=== PATIENT | female | born 1950 | race Caucasian/White ===

== ENCOUNTER 2016-10-25 10:14 | Inpatient (IN) ==
[2016-10-25] MEDS ORDERED: methylPREDNISolone 125 MG/2 ML VIAL IVP ONE (10:16)
--- NOTE | 2016-10-25 10:21 | Emergency Department Note ---
Disposition Clinical Impression: Acute exacerbation of chronic obstructive airways disease, Community acquired pneumonia Disposition: Admitted As Inpatient Condition: Fair Referrals: Lena Hawthorne CNP [Primary Care Provider] - Forms: ED Satisfaction Letter Time of Disposition: 13:45 SOB HPI - General Chief Complaint: ED Shortness of Breath/Dyspnea Stated Complaint: generalized weakness/shortness of breath Time Seen by Provider: 10/25/16 10:15 Source: patient, EMS Mode of arrival: EMS Limitations: no limitations Nursing Notes Reviewed: Yes Vital Signs Reviewed: Yes - History of Present Illness 0-8-ynfl-old with history COPD he's had increasing shortness of breath for the last 2 weeks. Patient also has a history of PE and is on Xarelto. A squad on transport noted the patient's pulse ox was in the low 70s when they arrived she is on 3 L at home. She was given breathing treatment with a nonrebreather and she went up to 97%. The breathing treatment the patient's pulse ox dropped down into the mid 80s on 3 L nasal cannula. She does not appear to be confused at this time. Pt Subjective Complaint: shortness of breath Onset (ago): day(s) (Several) Severity: moderate Consistency/Duration: constant Improves with: nothing Worsens with: exertion Known history of: COPD Associated symptoms: Reports: cough, wheezing. Denies: chest pain, fever Treatment prior to arrival: oxygen, bronchodilator Cough present: Yes Cough Description: Involuntary Cough Frequency: Intermittent - Related Data Home Medications Medication Instructions Recorded Confirmed Furosemide [Lasix] 20 mg PO DAILY PRN 03/22/16 03/22/16 Oxycodone HCl/Acetaminophen 1 each PO Q6H PRN 03/22/16 03/22/16 [Percocet 5-325 mg Tablet] Potassium Chloride 20 meq PO DAILY PRN 03/22/16 03/22/16 Previous Rx's Medication Instructions Recorded Rivaroxaban [Xarelto] 20 mg PO DAILY #30 tablet 11/09/15 Allergies Allergy/AdvReac Type Severity Reaction Status Date / Time No Known Allergies Allergy Verified 10/24/15 13:14 All systems ED: reviewed and negative except as stated. Constitutional: Denies: fever, chills, weakness, weight change Eyes: Denies: eye pain, eye discharge, vision change ENT ED: Denies: ear pain, throat pain, dental pain, hearing loss, epistaxis, congestion, dysphagia Cardiovascular: Denies: chest pain, palpitations, dyspnea on exertion, edema, syncope Respiratory: Reports: cough, dyspnea, wheezes. Denies: hemoptysis, stridor Gastrointestinal: Denies: abdominal pain, nausea, vomiting, diarrhea, constipation, hematemesis, melena, hematochezia Genitourinary: Denies: dysuria, frequency, hematuria, discharge Musculoskeletal: Denies: back pain, neck pain, arthralgia, myalgia Integumentary: Denies: rash, abrasion, lesions Neurological: Denies: headache, weakness, numbness, paresthesias, confusion, abnormal gait, vertigo Psychiatric: Denies: anxiety, depression, suicidal thoughts, homicidal thoughts , auditory hallucinations, visual hallucinations Endocrine: Denies: fatigue Hematological/Lymphatic: Denies: easy bleeding, easy bruising Allergic/Immunologic: Denies: facial swelling, urticaria Past Medical History - Past Medical History Medical history: Reports: COPD, pulmonary embolus Surgical history: Reports: appendectomy, cholecystectomy Psychiatric history: Reports: no psych history - Social History Smoking Status: Current every day smoker Smokeless Tobacco Status: No Alcohol use: Reports: none Drug use: Reports: none Physical Exam - General Limitations: no limitations General appearance: alert, in no apparent distress - Head Head exam: atraumatic, normocephalic, normal inspection - Eye Eye exam: Present: normal appearance, PERRL, EOMI - ENT ENT exam: normal exam - Neck Neck exam: Present: normal inspection - Chest Chest inspection: Present: normal inspection - Respiratory Respiratory exam: Present: respiratory distress, wheezes - Cardiovascular Cardiovascular exam: Present: regular rate, normal rhythm, normal heart sounds - Abdominal Exam Abdominal exam: Present: soft, Non-Tender. Absent: tenderness, distention, guarding, rebound, rigidity - Extremities Exam Extremities exam: Present: normal inspection, full ROM. Absent: tenderness, pedal edema - Expanded Lower Extremity Exam Neurovascular/Tendon exam: Absent: motor deficit, sensory deficit, tendon deficit Gait: observed and normal - Back Exam Back exam: Present: normal inspection, full ROM. Absent: tenderness - Neurological Exam Neurological exam: Present: alert, oriented X3 - Psychiatric Psychiatric exam: Present: normal affect, normal mood - Skin Skin exam: Present: warm, dry, intact, normal color Course - Reevaluation(s) Reevaluation #1: 66-year-old with history of COPD comes in with increasing shortness of breath. Workup included a CT scan that she's had previous pulmonary emboli and is on anticoagulation. CT scan does show pneumonia. She is requiring increasing amounts of oxygen and maintain her sats. Blood gas shows a normal pH. Time: 13:46 - Consultations Consultation #1: Discussed with , admit. Time: 13:46 Vital Signs Temperature 98.0 F 10/25/16 10:21 Pulse Rate 91 10/25/16 10:21 Respiratory Rate 18 10/25/16 10:21 Blood Pressure 126/72 10/25/16 10:21 O2 Sat by Pulse Oximetry 91 10/25/16 10:21 Temperature 98.0 F 10/25/16 10:21 Pulse Rate 68 10/25/16 13:09 Respiratory Rate 18 10/25/16 13:09 Blood Pressure 145/99 10/25/16 13:09 O2 Sat by Pulse Oximetry 91 10/25/16 13:09 Oxygen Delivery Oxygen Delivery Nasal Cannula Shortness of Breath/Dyspnea - Lab Data Lab results reviewed: Yes I reviewed the patient's lab results. Result diagrams: 10/25/16 10:52 10/25/16 10:52 Lab Results 10/25/16 10/25/16 10/25/16 Range/Units 10:25 10:52 10:52 WBC 15.8 H (4.3-11.1) K/mcL RBC 5.02 H (3.82-4.97) M/mcL Hgb 15.2 (11.5-15.4) g/dL Hct 47.5 H (35.3-44.9) % MCV 94.6 (83.0-100.0) fL MCH 30.3 (28.0-33.3) pg MCHC 32.0 (31.6-35.5) g/dL RDW 17.2 H (11.5-14.5) % Plt Count 270 (140-400) K/mcL MPV 10.1 (9.4-12.4) fL Immature Gran % 0.6 (0-4) % Seg Neutrophils % 83.0 % Lymphocytes % 10.2 % Monocytes % 5.8 % Eosinophils % 0.3 % Basophils % 0.1 % Neutrophils # 13.1 H (1.6-8.9) K/mcL Lymphocytes # 1.6 (0.6-4.6) K/mcL Monocytes # 0.9 (0.0-1.3) K/mcL Eosinophils # 0.1 (0.0-0.6) K/mcL Basophils # 0.0 (0.0-0.2) K/mcL PT (9.4-12.1) Seconds INR APTT (26.0-36.0) Seconds D-Dimer (0-500) ng/mLFEU ABG pH 7.41 (7.32-7.45) pH Units ABG pCO2 62 H (35-45) mmHg ABG pO2 56 L (85-104) mmHg ABG HCO3 39.3 H (21-27) mEQ/L ABG Total CO2 41.2 H (20-26) mEq/L ABG O2 Saturation 89 L (95-98) % ABG Base Excess 11.6 H (-2.0 to 3.0) mEq/L Blood Gas Modality N/C Inspired O2 36 % Sodium 141 (136-145) mEq/L Potassium 3.1 L (3.5-4.5) mEq/L Chloride 97 L (98-109) mEq/L Carbon Dioxide 36 H (19-29) mEq/L BUN 11 (7-20) mg/dL Creatinine 0.65 (0.57-1.11) mg/dL Est GFR ( Amer) > 60 (> 60) Est GFR (Non-Af Amer) > 60 (> 60) BUN/Creatinine Ratio 17 (6-26) Glucose 120 H (70-99) mg/dL Calculated Osmolality 293 (280-300) Lactic Acid (0.5-2.2) mmol/L Calcium 9.2 (8.6-10.8) mg/dL Troponin I (0-0.03) ng/mL B-Natriuretic Peptide (0-100) pg/mL 10/25/16 10/25/16 10/25/16 Range/Units 10:52 10:52 10:52 WBC (4.3-11.1) K/mcL RBC (3.82-4.97) M/mcL Hgb (11.5-15.4) g/dL Hct (35.3-44.9) % MCV (83.0-100.0) fL MCH (28.0-33.3) pg MCHC (31.6-35.5) g/dL RDW (11.5-14.5) % Plt Count (140-400) K/mcL MPV (9.4-12.4) fL Immature Gran % (0-4) % Seg Neutrophils % % Lymphocytes % % Monocytes % % Eosinophils % % Basophils % % Neutrophils # (1.6-8.9) K/mcL Lymphocytes # (0.6-4.6) K/mcL Monocytes # (0.0-1.3) K/mcL Eosinophils # (0.0-0.6) K/mcL Basophils # (0.0-0.2) K/mcL PT (9.4-12.1) Seconds INR APTT (26.0-36.0) Seconds D-Dimer (0-500) ng/mLFEU ABG pH (7.32-7.45) pH Units ABG pCO2 (35-45) mmHg ABG pO2 (85-104) mmHg ABG HCO3 (21-27) mEQ/L ABG Total CO2 (20-26) mEq/L ABG O2 Saturation (95-98) % ABG Base Excess (-2.0 to 3.0) mEq/L Blood Gas Modality Inspired O2 % Sodium (136-145) mEq/L Potassium (3.5-4.5) mEq/L Chloride (98-109) mEq/L Carbon Dioxide (19-29) mEq/L BUN (7-20) mg/dL Creatinine (0.57-1.11) mg/dL Est GFR ( Amer) (> 60) Est GFR (Non-Af Amer) (> 60) BUN/Creatinine Ratio (6-26) Glucose (70-99) mg/dL Calculated Osmolality (280-300) Lactic Acid 0.9 (0.5-2.2) mmol/L Calcium (8.6-10.8) mg/dL Troponin I 0.01 (0-0.03) ng/mL B-Natriuretic Peptide 35 (0-100) pg/mL 10/25/16 Range/Units 10:52 WBC (4.3-11.1) K/mcL RBC (3.82-4.97) M/mcL Hgb (11.5-15.4) g/dL Hct (35.3-44.9) % MCV (83.0-100.0) fL MCH (28.0-33.3) pg MCHC (31.6-35.5) g/dL RDW (11.5-14.5) % Plt Count (140-400) K/mcL MPV (9.4-12.4) fL Immature Gran % (0-4) % Seg Neutrophils % % Lymphocytes % % Monocytes % % Eosinophils % % Basophils % % Neutrophils # (1.6-8.9) K/mcL Lymphocytes # (0.6-4.6) K/mcL Monocytes # (0.0-1.3) K/mcL Eosinophils # (0.0-0.6) K/mcL Basophils # (0.0-0.2) K/mcL PT 13.8 H (9.4-12.1) Seconds INR 1.3 APTT 25.9 L (26.0-36.0) Seconds D-Dimer 6326 H (0-500) ng/mLFEU ABG pH (7.32-7.45) pH Units ABG pCO2 (35-45) mmHg ABG pO2 (85-104) mmHg ABG HCO3 (21-27) mEQ/L ABG Total CO2 (20-26) mEq/L ABG O2 Saturation (95-98) % ABG Base Excess (-2.0 to 3.0) mEq/L Blood Gas Modality Inspired O2 % Sodium (136-145) mEq/L Potassium (3.5-4.5) mEq/L Chloride (98-109) mEq/L Carbon Dioxide (19-29) mEq/L BUN (7-20) mg/dL Creatinine (0.57-1.11) mg/dL Est GFR ( Amer) (> 60) Est GFR (Non-Af Amer) (> 60) BUN/Creatinine Ratio (6-26) Glucose (70-99) mg/dL Calculated Osmolality (280-300) Lactic Acid (0.5-2.2) mmol/L Calcium (8.6-10.8) mg/dL Troponin I (0-0.03) ng/mL B-Natriuretic Peptide (0-100) pg/mL - Radiology Data Radiology results reviewed: Yes I reviewed the patient's radiology results. Chest X-Ray 10/25/16 10:16 IMPRESSION: Stable appearance of the chest. No evidence of acute cardiopulmonary disease. D/ / Ziggy Weiss MD / Ziggy Weiss MD Interpreting Provider: Ziggy Weiss MD Chest CTA 10/25/16 12:13 IMPRESSION: 1. No acute pulmonary embolus. 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 2. Bilateral multifocal tree-in-bud opacities suggestive of infectious bronchiolitis. There is more focal opacity in the right upper lobe suggestive of pneumonia. 3. 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 This is stable in appearance since the prior exam. D/ / 10/25/2016 13:17:13 Alis Crum MD / Rosy Brody Interpreting Provider: Alis Crum MD - EKG Data EKG attestation: Yes I reviewed and interpreted this EKG. EKG shows normal: Reports: sinus rhythm Rate: Reports: normal Rhythm: Reports: NSR Interpretation: Reports: no acute changes
[2016-10-25] MEDS: Ipratropium/Albuterol Neb 3 ML IH ONE ×2 (10:28→11:02)
[2016-10-25 10:32] LABS: ABG Base Excess 11.6 mEq/L (-2.0 to 3.0); ABG HCO3 39.3 mEQ/L (21-27); ABG Oxygen Saturation 89 % (95-98); ABG PCO2 62 mmHg (35-45); ABG PH 7.41 pH Units (7.32-7.45); ABG PO2 56 mmHg (85-104); ABG TCO2 41.2 mEq/L (20-26)
[2016-10-25 10:33] LABS: Blood Gas FiO2 36 %
[2016-10-25 11:00] LABS: Basophils % 0.1 %; Eosinophils # 0.1 K/mcL (0.0-0.6); Eosinophils % 0.3 %; Hematocrit 47.5 % (35.3-44.9); Hemoglobin 15.2 g/dL (11.5-15.4); Immature Granulocytes % 0.6 % (0-4); Lymphocytes # 1.6 K/mcL (0.6-4.6); Lymphocytes % 10.2 %; Mean Corpuscular Hemoglobin 30.3 pg (28.0-33.3); Mean Corpuscular Volume 94.6 fL (83.0-100.0); Mean Platelet Volume 10.1 fL (9.4-12.4); Monocytes # 0.9 K/mcL (0.0-1.3); Monocytes % 5.8 %; Neutrophils # 13.1 K/mcL (1.6-8.9); Platelet Count 270 K/mcL (140-400); Red Blood Count 5.02 M/mcL (3.82-4.97); Red Cell Distribution Width 17.2 % (11.5-14.5)
[2016-10-25 11:05] LABS: INR 1.3; Prothrombin Time 13.8 Seconds (9.4-12.1)
[2016-10-25 11:08] LABS: Activated Partial Thrombo Time 25.9 Seconds (26.0-36.0)
[2016-10-25 11:12] LABS: BUN/Creatinine Ratio 17 (6-26); Blood Urea Nitrogen 11 mg/dL (7-20); Calcium 9.2 mg/dL (8.6-10.8); Carbon Dioxide 36 mEq/L (19-29); Chloride 97 mEq/L (98-109); Glucose 120 mg/dL (70-99); Osmolality,Calculated 293 (280-300); Potassium 3.1 mEq/L (3.5-4.5); Sodium 141 mEq/L (136-145); eGFR For African Americans > 60 (> 60); eGFR For Non-African Americans > 60 (> 60)
[2016-10-25] MEDS ORDERED: Azithromycin 500 MG in D5% in Water 250 ML IVPB ONE (13:23)
[2016-10-25 13:55] LABS: Bilirubin,Urine Moderate (Negative); Blood,Urine Negative (Negative); Clarity,Urine Clear (Clear); Color,Urine Orange (Yellow); Glucose,Urine (UA) Normal (Normal); Ketones,Urine 15 mg/dL (Negative); Leukocyte Esterase,Urine Negative (Negative); Nitrite,Urine Positive (Negative); PH,Urine 6.5 pH Units (5.0-8.0); Protein,Urine 30 mg/dL (Neg-Trace); Specific Gravity,Urine > 1.030 (1.010-1.025)
[2016-10-25 14:01] LABS: Bacteria,Urine None Seen per hpf (None-Few); RBC,Urine 0-3 per hpf (0-3); Squamous Epithelial Cell,Urine Many per lpf (None-Few)
[2016-10-25] MEDS ORDERED: Acetaminophen 325 MG TABLET PO PRN (14:17)
[2016-10-25] MEDS ORDERED: Naloxone 0.4 MG/ML INJ IVP PRN (14:17)
[2016-10-25] MEDS ORDERED: Albuterol 2.5 MG/3 ML NEBULIZER IH PRN (14:23)
[2016-10-25] MEDS ORDERED: Ipratropium/Albuterol Neb 3 ML IH ONE (14:23)
--- NOTE | 2016-10-25 14:28 | Internal Med History&Physical ---
<Edwige Riley M - Last Filed: 10/25/16 14:53> Date of Encounter: 10/25/16 Time of Encounter: 14:25 Assessment and Plan (1) Community acquired pneumonia Current visit: Yes Status: Acute Patient with productive cough and increasing shortness of breath. CT Chest showed bilateral multifocal tree-in-bud opacities suggestive of infectious bronchiolitis and a more focal opacity in the right upper lobe suggestive of pneumonia. IV fluids 0.9NS at 80mL/hr Azithromycin and Ceftriaxone IVPB Mucinex BID Duoneb treatments QID Albuterol nebulizer Q2hr PRN titrate oxygen to maintain O2 saturation > 90% Incentive spirometry continuous pulse oximetry (2) Acute and chronic respiratory failure Current visit: Yes Status: Acute Patient with COPD requiring 2.5L of O2 at home. SHe reports increasing shortness of breath and her O2 sat was seen to be in the 70s by squad and she has increased oxygen requirements to maintain O2 sat > 90%. ABG showed hypercapnea with PCO2 of 62. Titrate O2 to maintain O2 sat > 90% continuous pulse oximetry. duoneb treatments QID albuterol nebulizer Q2hr prn Qualifiers: Respiratory failure complication: hypoxia and hypercapnia Qualified Code(s) : J96.21 - Acute and chronic respiratory failure with hypoxia; J96.22 - Acute and chronic respiratory failure with hypercapnia (3) Sepsis Current visit: No Status: Acute Patient meets criteria for sepsis, with pneumonia, elevated WBC count of 15.8 and tachypnea with observed RR of 22. Blood cultures drawn and sent lactic acid normal at 0.9 Antibiotics initiated with Azithromycin and ceftriaxone Sputum culture ordered. Qualifiers: Sepsis type: sepsis due to unspecified organism Qualified Code(s): A41.9 - Sepsis, unspecified organism (4) COPD (chronic obstructive pulmonary disease) Current visit: No Status: Acute Titrate O2 to maintain Oxygen saturation > 90% Continue home dose of budesonide/formotorol Duoneb treatments QID albuterol nebulizer Q2 hr PRN Qualifiers: COPD type: unspecified COPD Qualified Code(s): J44.9 - Chronic obstructive pulmonary disease, unspecified (5) History of pulmonary embolus (PE) Current visit: No Status: Chronic Patient has mirtha filter placed and is maintained on Xarelto for anti- coagulation Continue home dose of Xarelto. (6) Hypokalemia Current visit: Yes Status: Acute potassium of 3.1 20mEq of potassium PO given by ED Additional 40mEq PO ordered for this evening Recheck chemistry in the morning. (7) UTI (urinary tract infection) Current visit: Yes Status: Acute UA consistent with UTI. Patient on Ceftriaxone for Pneumonia which should cover common causes of UTI. Await culture results. Qualifiers: Urinary tract infection type: acute cystitis Hematuria presence: without hematuria Qualified Code(s): N30.00 - Acute cystitis without hematuria (8) DVT prophylaxis Current visit: No Status: Chronic ambulate with assistance anti-embolic stockings Patient is on Xarelto, additional pharmacologic prophylaxis is not indicated. Internal Medicine - H&P: HPI Chief complaint: shortness of breath Admitted From: Emergency Dept Plans for Post Hospital Care: Home History of present illness: Ms. Childress is a 66 year old female with COPD, hypertension, hyperlipidemia, history of multiple DVTs and PE with [employer] filter placed and on xarelto, who presented to the emergency department today with complaints of shortness of breath. She reports that she has had increased shortness of breath over the last several weeks with increasing weakness and fatigue, poor appetite, and productive cough. She reports her cough is productive of yellow thick sputum. She also reports some nasal congestion, occasional nausea, occasional lightheadedness. She denies any headache, fever, chills, sweats, abdominal pain , diarrhea. She wears 2-1/2 L of oxygen as needed at home for her history of COPD, but has needed it more in the last several weeks due to her shortness of breath. Evaluation in the emergency department revealed elevated white blood cell count of 15.8. She was hypokalemic with potassium of 3.1. Lactate was normal at 0.9, troponin was negative at 0.01, BNP was normal at 35, d-dimer was elevated to 6326. Chest x-ray showed stable appearance of the chest, no evidence of acute cardiopulmonary disease. CT was performed which showed no acute pulmonary embolus, chronic linear thrombus versus web within the distal left lower lobe pulmonary artery. It also showed bilateral multifocal tree-in- bud opacities suggestive of infectious bronchiolitis as well as a more focal opacity in the right upper lobe suggestive of pneumonia. She was initiated on antibiotics with ceftriaxone and azithromycin, and given a DuoNeb treatment. On exam, patient was alert and oriented, in no acute distress. She was mildly tachypneic with respiratory rate 22. Lungs had diffuse rhonchi and rales on auscultation. Regular rate and rhythm. She had bilateral lower extremity chronic edema and thickened skin consistent with venous insufficiency, patient reports this is chronic and unchanged. Past Med Surg Social Fam HX - Past Medical History Medical history: COPD, DVT, hyperlipidemia, hypertension, pulmonary embolus Psychiatric history: no psych history - Past Surgical History Surgical History: appendectomy, cholecystectomy, vascular surgery (bypass of occluded subclavian), IVC filter - Social History Smoking Status: Current every day smoker Smokeless Tobacco Status: No Alcohol use: none Drug use: none - Family History Mother Living Status: Cause of : Lung Cancer Hx Family Cancer: Yes Father Living Status: Age at : 48 Cause of : [place] Hx Family Cardiac Disorders: Yes Internal Medicine - H&P: Meds Rivaroxaban [Xarelto] 20 mg PO DAILY #30 tablet 11/09/15 [Rx] Furosemide [Lasix] 20 mg PO DAILY PRN 03/22/16 [History] Potassium Chloride 20 meq PO DAILY PRN 03/22/16 [History] Albuterol Neb [Proventil Neb] 2.5 mg IH Q4HR PRN 10/25/16 [History] Albuterol Sulfate [Ventolin Hfa] 2 puff IH Q4H PRN 10/25/16 [History] Budesonide/Formoterol 160/4.5 [Symbicort 160/4.5] 2 puff IH BIDR 10/25/16 [ History] Guaifenesin [Mucinex] 600 mg PO BID 10/25/16 [History] Naproxen Sodium [Aleve] 220 mg PO BID PRN 10/25/16 [History] OxyCODONE/APAP 7.5/325 [Percocet 7.5/325 MG] 1 tab PO Q6HR PRN 10/25/16 [History ] Oxygen 1 each .ROUTE AD 10/25/16 [History] Allergies No Known Allergies Allergy (Verified 10/24/15 13:14) All Systems PM: A 10-system review of systems was performed and is negative for pertinent findings except as documented above in the HPI. - Constitutional Constitutional: anorexia, fatigue, weakness, no chills, no fever(s), no night sweats - EENT Eyes: no change in vision, no discharge, no pain, no photophobia Ears: no ear discharge, no ear pain, no tinnitus Nose, mouth and throat: nasal congestion, nasal discharge, no dysphagia, no neck pain, no sore throat - Cardiovascular Cardiovascular ROS IM: dyspnea, dyspnea on exertion, lightheadedness, no chest pain, no diaphoresis, no palpitations, no syncope - Respiratory Respiratory: cough, dyspnea, dyspnea on exertion, chest congestion, excessive phlegm production, change in phlegm color, no wheezing - Gastrointestinal Gastrointestinal: nausea, no abdominal pain, no diarrhea, no hematemesis, no hematochezia, no melena, no vomiting - Genitourinary Genitourinary: no change in urinary stream, no dysuria, no flank pain, no hematuria - Musculoskeletal Musculoskeletal ROS IM: no numbness, no tingling - Integumentary Integumentary IM: no rash, no unusual bruising - Neurological Neurological ROS: no confusion, no convulsions, no focal weakness, no numbness, no tingling, no tremor(s) - Hematologic/Lymphatic Hematologic/Lymphatic: no easy bruising - Constitutional Vitals: Temp Pulse Resp BP Pulse Ox 98.0 F 82 18 133/67 91 10/25/16 10:21 10/25/16 14:00 10/25/16 14:00 10/25/16 14:00 10/25/16 14:00 General appearance: Present: A&O X 3, pleasant - Head Head exam: Present: atraumatic, normocephalic - Eye Eye exam: Present: PERRL, conjuntiva pink, sclera anicteric Pupils: Present: PERRL - Neck Neck exam general surgery: Present: supple, trachea midline. Absent: lymphadenopathy - Respiratory Respiratory exam: Present: rales, rhonchi. Absent: accessory muscle use, wheezes - Cardiovascular Cardiovascular exam: Present: RRR, +S1, +S2. Absent: diastolic murmur, gallop, rubs, systolic murmur - GI/Abdominal GI/Abdominal exam: Present: normal bowel sounds, soft, no peritoneal signs. Absent: distended, tenderness - Extremities Exam Extremities exam: Present: pedal edema (BLE edema), warm, radial pulses palpable and symetrical. Absent: calf tenderness, cyanotic - Neurological Exam Neurological exam: Present: CN II-XII intact, oriented X3, no focal deficits. Absent: facial droop, speech deficit - Skin Skin exam: Present: dry, intact Internal Med - H&P Results - Labs CBC & Chem 7: 10/25/16 10:52 10/25/16 10:52 Labs: All Lab Results (24 Hours) 10/25/16 10/25/16 10/25/16 Range/Units 10:25 10:52 10:52 WBC 15.8 H (4.3-11.1) K/mcL RBC 5.02 H (3.82-4.97) M/mcL Hgb 15.2 (11.5-15.4) g/dL Hct 47.5 H (35.3-44.9) % MCV 94.6 (83.0-100.0) fL MCH 30.3 (28.0-33.3) pg MCHC 32.0 (31.6-35.5) g/dL RDW 17.2 H (11.5-14.5) % Plt Count 270 (140-400) K/mcL MPV 10.1 (9.4-12.4) fL Immature Gran % 0.6 (0-4) % Seg Neutrophils % 83.0 % Lymphocytes % 10.2 % Monocytes % 5.8 % Eosinophils % 0.3 % Basophils % 0.1 % Neutrophils # 13.1 H (1.6-8.9) K/mcL Lymphocytes # 1.6 (0.6-4.6) K/mcL Monocytes # 0.9 (0.0-1.3) K/mcL Eosinophils # 0.1 (0.0-0.6) K/mcL Basophils # 0.0 (0.0-0.2) K/mcL PT (9.4-12.1) Seconds INR APTT (26.0-36.0) Seconds D-Dimer (0-500) ng/mLFEU ABG pH 7.41 (7.32-7.45) pH Units ABG pCO2 62 H (35-45) mmHg ABG pO2 56 L (85-104) mmHg ABG HCO3 39.3 H (21-27) mEQ/L ABG Total CO2 41.2 H (20-26) mEq/L ABG O2 Saturation 89 L (95-98) % ABG Base Excess 11.6 H (-2.0 to 3.0) mEq/L Blood Gas Modality N/C Inspired O2 36 % Sodium 141 (136-145) mEq/L Potassium 3.1 L (3.5-4.5) mEq/L Chloride 97 L (98-109) mEq/L Carbon Dioxide 36 H (19-29) mEq/L BUN 11 (7-20) mg/dL Creatinine 0.65 (0.57-1.11) mg/dL Est GFR ( Amer) > 60 (> 60) Est GFR (Non-Af Amer) > 60 (> 60) BUN/Creatinine Ratio 17 (6-26) Glucose 120 H (70-99) mg/dL Calculated Osmolality 293 (280-300) Lactic Acid (0.5-2.2) mmol/L Calcium 9.2 (8.6-10.8) mg/dL Troponin I (0-0.03) ng/mL B-Natriuretic Peptide (0-100) pg/mL Urine Color (Yellow) Urine Clarity (Clear) Urine pH (5.0-8.0) pH Units Ur Specific [place] (1.010-1.025) Urine Protein (Neg-Trace) mg/dL Urine Glucose (UA) (Normal) mg/dL Urine Ketones (Negative) mg/dL Urine Blood (Negative) Urine Nitrite (Negative) Urine Bilirubin (Negative) Urine Urobilinogen (Normal) mg/dL Ur Leukocyte Esterase (Negative) Urine Microscopic RBC (0-3) per hpf Urine Microscopic WBC (0-3) per hpf Ur Squamous Epith Cells (None-Few) per lpf Urine Bacteria (None-Few) per hpf Ur Culture Indicated? (NO) 10/25/16 10/25/16 10/25/16 Range/Units 10:52 10:52 10:52 WBC (4.3-11.1) K/mcL RBC (3.82-4.97) M/mcL Hgb (11.5-15.4) g/dL Hct (35.3-44.9) % MCV (83.0-100.0) fL MCH (28.0-33.3) pg MCHC (31.6-35.5) g/dL RDW (11.5-14.5) % Plt Count (140-400) K/mcL MPV (9.4-12.4) fL Immature Gran % (0-4) % Seg Neutrophils % % Lymphocytes % % Monocytes % % Eosinophils % % Basophils % % Neutrophils # (1.6-8.9) K/mcL Lymphocytes # (0.6-4.6) K/mcL Monocytes # (0.0-1.3) K/mcL Eosinophils # (0.0-0.6) K/mcL Basophils # (0.0-0.2) K/mcL PT (9.4-12.1) Seconds INR APTT (26.0-36.0) Seconds D-Dimer (0-500) ng/mLFEU ABG pH (7.32-7.45) pH Units ABG pCO2 (35-45) mmHg ABG pO2 (85-104) mmHg ABG HCO3 (21-27) mEQ/L ABG Total CO2 (20-26) mEq/L ABG O2 Saturation (95-98) % ABG Base Excess (-2.0 to 3.0) mEq/L Blood Gas Modality Inspired O2 % Sodium (136-145) mEq/L Potassium (3.5-4.5) mEq/L Chloride (98-109) mEq/L Carbon Dioxide (19-29) mEq/L BUN (7-20) mg/dL Creatinine (0.57-1.11) mg/dL Est GFR ( Amer) (> 60) Est GFR (Non-Af Amer) (> 60) BUN/Creatinine Ratio (6-26) Glucose (70-99) mg/dL Calculated Osmolality (280-300) Lactic Acid 0.9 (0.5-2.2) mmol/L Calcium (8.6-10.8) mg/dL Troponin I 0.01 (0-0.03) ng/mL B-Natriuretic Peptide 35 (0-100) pg/mL Urine Color (Yellow) Urine Clarity (Clear) Urine pH (5.0-8.0) pH Units Ur Specific [place] (1.010-1.025) Urine Protein (Neg-Trace) mg/dL Urine Glucose (UA) (Normal) mg/dL Urine Ketones (Negative) mg/dL Urine Blood (Negative) Urine Nitrite (Negative) Urine Bilirubin (Negative) Urine Urobilinogen (Normal) mg/dL Ur Leukocyte Esterase (Negative) Urine Microscopic RBC (0-3) per hpf Urine Microscopic WBC (0-3) per hpf Ur Squamous Epith Cells (None-Few) per lpf Urine Bacteria (None-Few) per hpf Ur Culture Indicated? (NO) 10/25/16 10/25/16 Range/Units 10:52 12:48 WBC (4.3-11.1) K/mcL RBC (3.82-4.97) M/mcL Hgb (11.5-15.4) g/dL Hct (35.3-44.9) % MCV (83.0-100.0) fL MCH (28.0-33.3) pg MCHC (31.6-35.5) g/dL RDW (11.5-14.5) % Plt Count (140-400) K/mcL MPV (9.4-12.4) fL Immature Gran % (0-4) % Seg Neutrophils % % Lymphocytes % % Monocytes % % Eosinophils % % Basophils % % Neutrophils # (1.6-8.9) K/mcL Lymphocytes # (0.6-4.6) K/mcL Monocytes # (0.0-1.3) K/mcL Eosinophils # (0.0-0.6) K/mcL Basophils # (0.0-0.2) K/mcL PT 13.8 H (9.4-12.1) Seconds INR 1.3 APTT 25.9 L (26.0-36.0) Seconds D-Dimer 6326 H (0-500) ng/mLFEU ABG pH (7.32-7.45) pH Units ABG pCO2 (35-45) mmHg ABG pO2 (85-104) mmHg ABG HCO3 (21-27) mEQ/L ABG Total CO2 (20-26) mEq/L ABG O2 Saturation (95-98) % ABG Base Excess (-2.0 to 3.0) mEq/L Blood Gas Modality Inspired O2 % Sodium (136-145) mEq/L Potassium (3.5-4.5) mEq/L Chloride (98-109) mEq/L Carbon Dioxide (19-29) mEq/L BUN (7-20) mg/dL Creatinine (0.57-1.11) mg/dL Est GFR ( Amer) (> 60) Est GFR (Non-Af Amer) (> 60) BUN/Creatinine Ratio (6-26) Glucose (70-99) mg/dL Calculated Osmolality (280-300) Lactic Acid (0.5-2.2) mmol/L Calcium (8.6-10.8) mg/dL Troponin I (0-0.03) ng/mL B-Natriuretic Peptide (0-100) pg/mL Urine Color [place] A (Yellow) Urine Clarity Clear (Clear) Urine pH 6.5 (5.0-8.0) pH Units Ur Specific [place] > 1.030 H (1.010-1.025) Urine Protein 30 H (Neg-Trace) mg/dL Urine Glucose (UA) Normal (Normal) mg/dL Urine Ketones 15 H (Negative) mg/dL Urine Blood Negative (Negative) Urine Nitrite Positive A (Negative) Urine Bilirubin Moderate H (Negative) Urine Urobilinogen 4.0 H (Normal) mg/dL Ur Leukocyte Esterase Negative (Negative) Urine Microscopic RBC 0-3 (0-3) per hpf Urine Microscopic WBC 5-15 H (0-3) per hpf Ur Squamous Epith Cells Many H (None-Few) per lpf Urine Bacteria None Seen (None-Few) per hpf Ur Culture Indicated? YES A (NO) - Diagnostic Studies Chest x-ray Additional comments: Chest X-Ray 10/25/16 10:16 IMPRESSION: Stable appearance of the chest. No evidence of acute cardiopulmonary disease. D/ / Ziggy Weiss MD / Ziggy Weiss MD Interpreting Provider: Ziggy Weiss MD CT scan - chest Additional comments: Chest CTA 10/25/16 12:13 IMPRESSION: 1. No acute pulmonary embolus. 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 2. Bilateral multifocal tree-in-bud opacities suggestive of infectious bronchiolitis. There is more focal opacity in the right upper lobe suggestive of pneumonia. 3. 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 This is stable in appearance since the prior exam. D/ / 10/25/2016 13:17:13 Alis Crum MD / Rosy Brody Interpreting Provider: Alis Crum MD <Zhao Orellana - Last Filed: 10/25/16 15:10> Date of Encounter: 10/25/16 Internal Medicine - H&P: HPI History of present illness: Ms. Childress is a 66 year old female All Systems PM: A 10-system review of systems was performed and is negative for pertinent findings except as documented above in the HPI. - Constitutional Vitals: Temp Pulse Resp BP Pulse Ox 98.0 F 82 18 133/73 89 10/25/16 10:21 10/25/16 14:00 10/25/16 15:05 10/25/16 15:05 10/25/16 14:43 Internal Med - H&P Results - Labs CBC & Chem 7: 10/25/16 10:52 10/25/16 10:52 - Attending Attestation I examined this patient and my medical decision-making was reviewed with the IN[employer]STOR [employer]ATIONS ASSOCIATE/PA/Advanced Practice Nurse/Resident Physician. I agree with the documented findings, disposition and treatment plan as described except to the extent set forth below. I saw and examined Ms. Escobar Independently. Patient with Underlying COPD and History of Pulmonary Embolism on xarelto, still smoking although quit 1 month ago and poor adherence to AC. Admitted due to SOB, sepsis due to PNA and possible UTI. Agree with STEVE Riley. D/W patient. PT OT teresita.
[2016-10-25] MEDS ORDERED: *HR* OxyCODONE/APAP 7.5/325 TABLET PO PRN (14:52)
[2016-10-25] MEDS: 0.9 % Sodium Chloride 1,000 ML IVC SCH (16:40)
[2016-10-25] MEDS: Ipratropium/Albuterol Neb 3 ML IH SCH ×2 (18:55→22:52)
[2016-10-25] MEDS: *HR* OxyCODONE/APAP 7.5/325 TABLET PO PRN (22:33)
[2016-10-25] MEDS: Budesonide/Formoterol 160/4.5 MDI IH SCH ×2 (22:52)
--- NOTE | 2016-10-25 22:54 | Electrocardiograph Report ---
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
[2016-10-26] MEDS: 0.9 % Sodium Chloride 1,000 ML IVC SCH (04:28)
[2016-10-26] MEDS: Ipratropium/Albuterol Neb 3 ML IH SCH ×4 (05:07→22:24)
[2016-10-26 05:18] LABS: Basophils % 0.1 %; Hematocrit 43.1 % (35.3-44.9); Immature Granulocytes % 0.5 % (0-4); Lymphocytes % 6.9 %; Mean Corpuscular HGB Conc 32.5 g/dL (31.6-35.5); Mean Corpuscular Volume 95.4 fL (83.0-100.0); Mean Platelet Volume 10.6 fL (9.4-12.4); Monocytes # 0.6 K/mcL (0.0-1.3); Monocytes % 3.8 %; Neutrophils # 13.1 K/mcL (1.6-8.9); Platelet Count 252 K/mcL (140-400); Red Blood Count 4.52 M/mcL (3.82-4.97); Red Cell Distribution Width 16.4 % (11.5-14.5); Segmented Neutrophils % 88.7 %
[2016-10-26 05:28] LABS: BUN/Creatinine Ratio 20 (6-26); Blood Urea Nitrogen 13 mg/dL (7-20); Calcium 8.8 mg/dL (8.6-10.8); Carbon Dioxide 35 mEq/L (19-29); Chloride 99 mEq/L (98-109); Glucose 132 mg/dL (70-99); Osmolality,Calculated 290 (280-300); Sodium 139 mEq/L (136-145); eGFR For African Americans > 60 (> 60); eGFR For Non-African Americans > 60 (> 60)
[2016-10-26 05:30] LABS: Potassium 4.1 mEq/L (3.5-4.5)
[2016-10-26] MEDS: *HR* Rivaroxaban 10 MG TABLET PO SCH (08:14)
[2016-10-26] MEDS: Budesonide/Formoterol 160/4.5 MDI IH SCH ×2 (10:26→22:24)
[2016-10-26] MEDS ORDERED: Furosemide 20 MG/2 ML VIAL IVP ONE (11:31)
--- NOTE | 2016-10-26 15:11 | Internal Med Progress Note ---
Date of Encounter: 10/26/16 Time of Encounter: 15:09 - Assessment and plan (1) Community acquired pneumonia Current Visit: Yes Status: Acute Assessment and plan: Continue with iv antibiotics. Follow cultures. Continue oxygen. (2) Acute and chronic respiratory failure Current Visit: Yes Status: Acute Assessment and plan: H/O COPD and PE, with PNA. Will give a dose of lasix today. Potassium corrected, will continue monitoring. See above Qualifiers: Respiratory failure complication: hypoxia and hypercapnia Qualified Code(s) : J96.21 - Acute and chronic respiratory failure with hypoxia; J96.22 - Acute and chronic respiratory failure with hypercapnia (3) UTI (urinary tract infection) Current Visit: Yes Status: Acute Assessment and plan: Negative UC. Qualifiers: Urinary tract infection type: acute cystitis Hematuria presence: without hematuria Qualified Code(s): N30.00 - Acute cystitis without hematuria (4) COPD (chronic obstructive pulmonary disease) Current Visit: No Status: Acute Assessment and plan: Continue with oxygen therapy and nebulizer treatments. Qualifiers: COPD type: unspecified COPD Qualified Code(s): J44.9 - Chronic obstructive pulmonary disease, unspecified (5) DVT prophylaxis Current Visit: No Status: Chronic Assessment and plan: On xarelto. (6) History of pulmonary embolus (PE) Current Visit: No Status: Chronic Assessment and plan: On xarelto. - Time Spent With Patient 25 - 35 minutes - Subjective Interval history: feels fatigued, still has cough, feels better than yesterday. - Constitutional Vitals: Temp Pulse Resp BP Pulse Ox 97.7 F 73 18 104/67 91 10/26/16 11:12 10/26/16 11:12 10/26/16 11:12 10/26/16 11:12 10/26/16 11:12 General appearance: Present: cooperative, mild distress, A&O X 3, morbidly obese , pleasant - Head Head exam: Present: atraumatic, normocephalic - Eye Eye exam: Present: PERRL, conjuntiva pink, sclera anicteric Pupils: Present: PERRL - Neck Neck exam general surgery: Present: supple, trachea midline. Absent: lymphadenopathy - Respiratory Respiratory exam: Present: decreased breath sounds, rhonchi. Absent: accessory muscle use, rales, wheezes - Cardiovascular Cardiovascular exam: Present: RRR, +S1, +S2. Absent: diastolic murmur, gallop, rubs, systolic murmur - GI/Abdominal GI/Abdominal exam: Present: normal bowel sounds, soft, no peritoneal signs. Absent: distended, tenderness - Extremities Exam Extremities exam: Present: pedal edema, warm, radial pulses palpable and symetrical. Absent: calf tenderness, cyanotic - Neurological Exam Neurological exam: Present: CN II-XII intact, oriented X3, no focal deficits. Absent: pronater drift, facial droop, speech deficit - Skin Skin exam: Present: dry, intact Internal Medicine: Result - Labs CBC & Chem 7: 10/26/16 04:55 10/26/16 04:55 Labs: Short CBC 10/26/16 Range/Units 04:55 WBC 14.8 H (4.3-11.1) K/mcL Hgb 14.0 (11.5-15.4) g/dL Hct 43.1 (35.3-44.9) % Plt Count 252 (140-400) K/mcL Neutrophils # 13.1 H (1.6-8.9) K/mcL BMP 10/26/16 04:55 Sodium 139 Potassium 4.1 D Chloride 99 Carbon Dioxide 35 H BUN 13 Creatinine 0.64 Glucose 132 H Calcium 8.8 - ABG Interpretation ABG results: ABG ABG pH 7.41 pH Units (7.32-7.45) 10/25/16 10:25 ABG pCO2 62 mmHg (35-45) H 10/25/16 10:25 ABG pO2 56 mmHg (85-104) L 10/25/16 10:25 ABG O2 Saturation 89 % (95-98) L 10/25/16 10:25 PT/INR, D-dimer PT 13.8 Seconds (9.4-12.1) H 10/25/16 10:52 D-Dimer 6326 ng/mLFEU (0-500) H 10/25/16 10:52 - VTE Documentation of Mechanical Device: Intermittent pneumatic compression device Consult Discharge Plan - Plan Referrals: Lena Hawthorne [employer]ACHINE [Primary Care Provider] - 11/03/16 1:25 pm (Please follow up as schedule...)
[2016-10-26] MEDS: Azithromycin 500 MG in D5% in Water 250 ML IVPB SCH (16:55)
[2016-10-26] MEDS: *HR* OxyCODONE/APAP 7.5/325 TABLET PO PRN ×2 (17:06→23:48)
[2016-10-27] MEDS: Ipratropium/Albuterol Neb 3 ML IH SCH ×4 (04:23→22:44)
[2016-10-27 05:31] LABS: Basophils % 0.2 %; Eosinophils # 0.1 K/mcL (0.0-0.6); Hematocrit 43.2 % (35.3-44.9); Hemoglobin 13.7 g/dL (11.5-15.4); Immature Granulocytes % 0.4 % (0-4); Lymphocytes # 1.8 K/mcL (0.6-4.6); Lymphocytes % 17.9 %; Mean Corpuscular HGB Conc 31.7 g/dL (31.6-35.5); Mean Corpuscular Hemoglobin 30.6 pg (28.0-33.3); Mean Corpuscular Volume 96.6 fL (83.0-100.0); Mean Platelet Volume 10.6 fL (9.4-12.4); Monocytes # 0.7 K/mcL (0.0-1.3); Monocytes % 7.1 %; Neutrophils # 7.2 K/mcL (1.6-8.9); Platelet Count 251 K/mcL (140-400); Red Blood Count 4.47 M/mcL (3.82-4.97); Segmented Neutrophils % 73.4 %
[2016-10-27 05:47] LABS: BUN/Creatinine Ratio 25 (6-26); Blood Urea Nitrogen 17 mg/dL (7-20); Calcium 8.5 mg/dL (8.6-10.8); Carbon Dioxide 36 mEq/L (19-29); Chloride 100 mEq/L (98-109); Glucose 85 mg/dL (70-99); Osmolality,Calculated 297 (280-300); Potassium 3.4 mEq/L (3.5-4.5); Sodium 143 mEq/L (136-145); eGFR For African Americans > 60 (> 60); eGFR For Non-African Americans > 60 (> 60)
[2016-10-27] MEDS ORDERED: *HR* OxyCODONE/APAP 7.5/325 TABLET PO PRN (09:35)
[2016-10-27] MEDS: *HR* Rivaroxaban 10 MG TABLET PO SCH (10:22)
[2016-10-27] MEDS: Budesonide/Formoterol 160/4.5 MDI IH SCH ×2 (10:40→22:44)
[2016-10-27] MEDS: Azithromycin 500 MG in D5% in Water 250 ML IVPB SCH (15:45)
[2016-10-27] MEDS ORDERED: Azithromycin 500 MG VIAL IVPB ONE (15:47)
--- NOTE | 2016-10-27 16:17 | Internal Med Progress Note ---
Date of Encounter: 10/27/16 Time of Encounter: 16:16 - Assessment and plan (1) Community acquired pneumonia Current Visit: Yes Status: Acute Assessment and plan: Continue with iv antibiotics. Follow cultures. Continue oxygen. Leukocytosis resolved. Getting clinically better, likely discharge tomorrow in am (2) Acute and chronic respiratory failure Current Visit: Yes Status: Acute Assessment and plan: H/O COPD and PE, with PNA. User of CPAP at home, will continue with that here. Potassium supplemented today, will continue monitoring. Qualifiers: Respiratory failure complication: hypoxia and hypercapnia Qualified Code(s) : J96.21 - Acute and chronic respiratory failure with hypoxia; J96.22 - Acute and chronic respiratory failure with hypercapnia (3) UTI (urinary tract infection) Current Visit: Yes Status: Acute Assessment and plan: Negative UC. Qualifiers: Urinary tract infection type: acute cystitis Hematuria presence: without hematuria Qualified Code(s): N30.00 - Acute cystitis without hematuria (4) COPD (chronic obstructive pulmonary disease) Current Visit: No Status: Acute Assessment and plan: Continue with oxygen therapy and nebulizer treatments. Qualifiers: COPD type: unspecified COPD Qualified Code(s): J44.9 - Chronic obstructive pulmonary disease, unspecified (5) DVT prophylaxis Current Visit: No Status: Chronic Assessment and plan: On xarelto. (6) History of pulmonary embolus (PE) Current Visit: No Status: Chronic Assessment and plan: On xarelto. - Subjective Interval history: feels better than yesterday, her iv was not functioning and had some bleeding coming from that site, no fever, is still feeling weak but states that is getting better. - Constitutional Vitals: Temp Pulse Resp BP Pulse Ox 97.6 F 78 16 112/72 90 10/27/16 11:01 10/27/16 11:01 10/27/16 16:01 10/27/16 11:01 10/27/16 16:01 General appearance: Present: cooperative, mild distress, A&O X 3, morbidly obese , pleasant - Head Head exam: Present: atraumatic, normocephalic - Eye Eye exam: Present: PERRL, conjuntiva pink, sclera anicteric Pupils: Present: PERRL - Neck Neck exam general surgery: Present: supple, trachea midline. Absent: lymphadenopathy - Respiratory Respiratory exam: Present: rhonchi. Absent: accessory muscle use, rales, wheezes - Cardiovascular Cardiovascular exam: Present: RRR, +S1, +S2. Absent: diastolic murmur, gallop, rubs, systolic murmur - GI/Abdominal GI/Abdominal exam: Present: normal bowel sounds, soft, no peritoneal signs. Absent: distended, tenderness - Extremities Exam Extremities exam: Present: warm, radial pulses palpable and symetrical. Absent : calf tenderness, cyanotic, pedal edema - Neurological Exam Neurological exam: Present: CN II-XII intact, oriented X3, no focal deficits. Absent: pronater drift, facial droop, speech deficit - Skin Skin exam: Present: dry, intact Internal Medicine: Result - Labs CBC & Chem 7: 10/27/16 04:46 10/27/16 04:46 Labs: Short CBC 10/27/16 Range/Units 04:46 WBC 9.9 (4.3-11.1) K/mcL Hgb 13.7 (11.5-15.4) g/dL Hct 43.2 (35.3-44.9) % Plt Count 251 (140-400) K/mcL Neutrophils # 7.2 (1.6-8.9) K/mcL BMP 10/27/16 04:46 Sodium 143 Potassium 3.4 L Chloride 100 Carbon Dioxide 36 H BUN 17 Creatinine 0.68 Glucose 85 Calcium 8.5 L - ABG Interpretation ABG results: ABG ABG pH 7.41 pH Units (7.32-7.45) 10/25/16 10:25 ABG pCO2 62 mmHg (35-45) H 10/25/16 10:25 ABG pO2 56 mmHg (85-104) L 10/25/16 10:25 ABG O2 Saturation 89 % (95-98) L 10/25/16 10:25 PT/INR, D-dimer PT 13.8 Seconds (9.4-12.1) H 10/25/16 10:52 D-Dimer 6326 ng/mLFEU (0-500) H 10/25/16 10:52 - VTE Documentation of Mechanical Device: Intermittent pneumatic compression device Consult Discharge Plan - Plan Referrals: Lena Hawthorne [employer]UL[employer] TEACHER [Primary Care Provider] - 11/03/16 1:25 pm (Please follow up as schedule...)
[2016-10-28] MEDS: Ipratropium/Albuterol Neb 3 ML IH SCH ×2 (04:31→11:16)
[2016-10-28 05:51] LABS: Basophils % 0.1 %; Eosinophils # 0.2 K/mcL (0.0-0.6); Eosinophils % 2.1 %; Hematocrit 42.7 % (35.3-44.9); Hemoglobin 13.6 g/dL (11.5-15.4); Immature Granulocytes % 0.4 % (0-4); Lymphocytes # 1.5 K/mcL (0.6-4.6); Lymphocytes % 19.3 %; Mean Corpuscular HGB Conc 31.9 g/dL (31.6-35.5); Mean Corpuscular Volume 97.3 fL (83.0-100.0); Monocytes # 0.7 K/mcL (0.0-1.3); Monocytes % 9.4 %; Neutrophils # 5.3 K/mcL (1.6-8.9); Platelet Count 241 K/mcL (140-400); Red Blood Count 4.39 M/mcL (3.82-4.97); Segmented Neutrophils % 68.7 %
[2016-10-28 06:04] LABS: BUN/Creatinine Ratio 25 (6-26); Blood Urea Nitrogen 17 mg/dL (7-20); Calcium 8.7 mg/dL (8.6-10.8); Carbon Dioxide 35 mEq/L (19-29); Chloride 99 mEq/L (98-109); Glucose 87 mg/dL (70-99); Magnesium 1.8 mg/dL (1.6-2.6); Osmolality,Calculated 291 (280-300); Sodium 140 mEq/L (136-145); eGFR For African Americans > 60 (> 60); eGFR For Non-African Americans > 60 (> 60)
[2016-10-28] MEDS: *HR* Rivaroxaban 10 MG TABLET PO SCH (09:09)
[2016-10-28] MEDS: Budesonide/Formoterol 160/4.5 MDI IH SCH (11:16)
--- NOTE | 2016-10-28 11:54 | Discharge Summary ---
Date of Encounter: 10/28/16 Time of Encounter: 11:49 - Discharge Diagnosis (1) Community acquired pneumonia Priority: Primary Status: Acute (2) Acute and chronic respiratory failure Priority: Secondary Status: Acute Qualifiers: Respiratory failure complication: hypoxia and hypercapnia Qualified Code(s) : J96.21 - Acute and chronic respiratory failure with hypoxia; J96.22 - Acute and chronic respiratory failure with hypercapnia (3) UTI (urinary tract infection) Priority: Secondary Status: Acute Qualifiers: Urinary tract infection type: acute cystitis Hematuria presence: without hematuria Qualified Code(s): N30.00 - Acute cystitis without hematuria (4) COPD (chronic obstructive pulmonary disease) Priority: Secondary Status: Acute Qualifiers: COPD type: unspecified COPD Qualified Code(s): J44.9 - Chronic obstructive pulmonary disease, unspecified (5) DVT prophylaxis Priority: Secondary Status: Chronic (6) History of pulmonary embolus (PE) Priority: Secondary Status: Chronic - Discharge Medications Prescriptions: Cefdinir [Omnicef] 300 mg PO BID 4 Days Home Medications: Rivaroxaban [Xarelto] 20 mg PO DAILY #30 tablet 11/09/15 [Rx] Furosemide [Lasix] 20 mg PO DAILY PRN 03/22/16 [History] Potassium Chloride 20 meq PO DAILY PRN 03/22/16 [History] Albuterol Neb [Proventil Neb] 2.5 mg IH Q4HR PRN 10/25/16 [History] Albuterol Sulfate [Ventolin Hfa] 2 puff IH Q4H PRN 10/25/16 [History] Budesonide/Formoterol 160/4.5 [Symbicort 160/4.5] 2 puff IH BIDR 10/25/16 [ History] Guaifenesin [Mucinex] 600 mg PO BID 10/25/16 [History] Naproxen Sodium [Aleve] 220 mg PO BID PRN 10/25/16 [History] OxyCODONE/APAP 7.5/325 [Percocet 7.5/325 MG] 1 tab PO Q6HR PRN 10/25/16 [History ] Oxygen 1 each .ROUTE AD 10/25/16 [History] Cefdinir [Omnicef] 300 mg PO BID 4 Days 10/28/16 [Rx] Allergies/Adverse Reactions: Allergies No Known Allergies Allergy (Verified 10/24/15 13:14) Date of admission: 10/25/16 14:17 Primary care physician: Lena Hawthorne CNP Consults: 10/25/16 15:09 Consult to Occupational Therapy [CONS] Routine Comment: Evaluate, develop and implement POC Consult to Physical Therapy [CONS] Routine Comment: Evaluate, develop and implement POC Discharging clinician: Zhao Orellana Anticipated date of discharge: 10/28/16 - Patient Status Disposition: Home Health Service Condition: Fair Functional capacity at discharge: uses cane/walker Overall status at discharge: patient is back to baseline - Discharge Instructions Follow Up With: Lena Hawthorne CNP [Primary Care Provider] - 11/03/16 1:25 pm (Please follow up as schedule...) - Diet and Activity Activity: increase activity as tolerated Diet: advance to your usual diet Interval History: Ms. 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 She reports that she has had increased shortness of breath over the last several weeks with increasing weakness and fatigue, poor appetite, and productive cough. She reports her cough is productive of yellow thick sputum. She also reports some nasal congestion, occasional nausea, occasional lightheadedness. She denies any headache, fever, chills, sweats, abdominal pain , diarrhea. She wears 2-1/2 L of oxygen as needed at home for her history of COPD, but has needed it more in the last several weeks due to her shortness of breath. Evaluation in the emergency department revealed elevated white blood cell count of 15.8. She was hypokalemic with potassium of 3.1. Lactate was normal at 0.9, troponin was negative at 0.01, BNP was normal at 35, d-dimer was elevated to 6326. Chest x-ray showed stable appearance of the chest, no evidence of acute cardiopulmonary disease. CT was performed which showed no acute pulmonary embolus, chronic linear thrombus versus web within the distal left lower lobe pulmonary artery. It also showed bilateral multifocal tree-in- bud opacities suggestive of infectious bronchiolitis as well as a more focal opacity in the right upper lobe suggestive of pneumonia. She was initiated on antibiotics with ceftriaxone and azithromycin, and given a DuoNeb treatment. On exam, patient was alert and oriented, in no acute distress. She was mildly tachypneic with respiratory rate 22. Lungs had diffuse rhonchi and rales on auscultation. Regular rate and rhythm. She had bilateral lower extremity chronic edema and thickened skin consistent with venous insufficiency, patient reports this is chronic and unchanged. Hospital course: Ms. Childress is a 66 year old female with multiple comorbidities admitted due to pneumonia. She was started on both Rocephin and azithromycin. She had a good clinical response. Initially had a leukocytosis of 15.8, since admission the patient has not had fever, leukocytosis resolved. We will discharge the patient home today. she also had hypokalemia, potassium was supplemented and hypokalemia has resolved. We will resume her home medications and continue antibiotic therapy with by mouth Omnicef. The patient was explained in detail about the plan, she expressed understanding. She is a user of long-term oxygen therapy, I would recommend the patient to continue using oxygen and to follow up with her primary care physician upon discharge. Compliance and adherence to medication while strongly recommended. - Time Spent with Patient Total time spent providing and/or coordinating discharge services: - Constitutional Vitals: Temp Pulse Resp BP Pulse Ox 97.3 F L 71 22 143/80 98 10/28/16 07:57 10/28/16 07:57 10/28/16 07:57 10/28/16 07:57 10/28/16 07:57 General appearance: Present: cooperative, mild distress, A&O X 3, morbidly obese , pleasant - Head Head exam: Present: atraumatic, normocephalic - Eye Eye exam: Present: PERRL, conjuntiva pink, sclera anicteric Pupils: Present: PERRL - Neck Neck exam general surgery: Present: supple, trachea midline. Absent: lymphadenopathy - Respiratory Respiratory exam: Present: CTAB. Absent: accessory muscle use, rales, rhonchi, wheezes - Cardiovascular Cardiovascular exam: Present: RRR, +S1, +S2. Absent: diastolic murmur, gallop, rubs, systolic murmur - GI/Abdominal GI/Abdominal exam: Present: normal bowel sounds, soft, no peritoneal signs. Absent: distended, tenderness - Extremities Exam Extremities exam: Present: warm, radial pulses palpable and symetrical. Absent : calf tenderness, cyanotic, pedal edema - Neurological Exam Neurological exam: Present: CN II-XII intact, oriented X3, no focal deficits. Absent: pronater drift, facial droop, speech deficit - Skin Skin exam: Present: dry, intact - VTE Documentation of Mechanical Device: Intermittent pneumatic compression device
--- NOTE | 2016-10-28 11:58 | Physician Discharge Referral ---
Home Health/Hosp Referral Info Transfer to: Home Health Provider in Charge Post Discharge: PCP - Diagnosis (1) Community acquired pneumonia Status: Acute (2) Acute and chronic respiratory failure Status: Acute (3) UTI (urinary tract infection) Status: Acute (4) COPD (chronic obstructive pulmonary disease) Status: Acute (5) DVT prophylaxis Status: Chronic (6) History of pulmonary embolus (PE) Status: Chronic - Respiratory Orders Oxygen / L per min (2) Smoking Cessation: Smoking cessation has been advised. For more information, call the [place] [employer] Quit Line at 8-182-TVKI-NOW. - Services Needed Following services are medically necessary services: Nursing, Home Health Aide - Transfer Medications Prescriptions: Cefdinir [Omnicef] 300 mg PO BID 4 Days Home Medications: Rivaroxaban [Xarelto] 20 mg PO DAILY #30 tablet 11/09/15 [Rx] Furosemide [Lasix] 20 mg PO DAILY PRN 03/22/16 [History] Potassium Chloride 20 meq PO DAILY PRN 03/22/16 [History] Albuterol Neb [Proventil Neb] 2.5 mg IH Q4HR PRN 10/25/16 [History] Albuterol Sulfate [Ventolin Hfa] 2 puff IH Q4H PRN 10/25/16 [History] Budesonide/Formoterol 160/4.5 [Symbicort 160/4.5] 2 puff IH BIDR 10/25/16 [ History] Guaifenesin [Mucinex] 600 mg PO BID 10/25/16 [History] Naproxen Sodium [Aleve] 220 mg PO BID PRN 10/25/16 [History] OxyCODONE/APAP 7.5/325 [Percocet 7.5/325 MG] 1 tab PO Q6HR PRN 10/25/16 [History ] Oxygen 1 each .ROUTE AD 10/25/16 [History] Cefdinir [Omnicef] 300 mg PO BID 4 Days 10/28/16 [Rx] Allergies/Adverse Reactions: Allergies No Known Allergies Allergy (Verified 10/24/15 13:14) Certification: Further, I certify that my clinical findings support that this patient is homebound (i.e. absences from home require considerable and taxing effort and are for medical reasons or latter day services or infrequently or short duration when for other reasons) because: Homebound Reason: Severity of cardiac or pulmonary status limits activity tolerance Attestation: My signature below is to certify that this patient is under my care and that I, or nurse practitioner, or a physician's activities assistant working with me, has a face-to -face encounter with this patient.
[2016-10-28 13:58] VITALS: BP 106/70
== END 2016-10-28 14:10 | disposition home or self-care (01) | DRG 871 ==
LOC: EMEROO 10:14 → 2ANU 10:14 → SUATTDRO 14:17 → 2ANU 15:38
PROVIDERS: ADMIT Internal Medicine; ATTEND Internal Medicine

== ENCOUNTER 2019-09-16 12:07 | Inpatient (IN) ==
[2019-09-16] MEDS ORDERED: Piperacillin/Tazobactam 3.375 GM in 0.9 % Sodium Chloride Mini Bag 100 ML IVPB ONE (12:41)
[2019-09-16] MEDS ORDERED: 0.9 % Sodium Chloride 1,000 ML IVC ONE ×3 (12:43→18:36)
[2019-09-16 13:16] LABS: Basophils % 0.2 %; Hemoglobin 19.6 g/dL (11.5-15.4); Immature Granulocytes % 0.3 % (0-4); Lymphocytes # 0.4 K/mcL (0.6-4.6); Lymphocytes % 4.2 %; Mean Corpuscular HGB Conc 33.2 g/dL (31.6-35.5); Mean Corpuscular Hemoglobin 34.3 pg (28.0-33.3); Mean Corpuscular Volume 103.1 fL (83.0-100.0); Mean Platelet Volume 11.4 fL (9.4-12.4); Monocytes # 0.8 K/mcL (0.0-1.3); Monocytes % 7.6 %; Neutrophils # 9.1 K/mcL (1.6-8.9); Platelet Count 156 K/mcL (140-400); Red Blood Count 5.72 M/mcL (3.82-4.97); Red Cell Distribution Width 17.2 % (11.5-14.5); Segmented Neutrophils % 87.7 %; White Blood Count 10.4 K/mcL (4.3-11.1)
[2019-09-16 13:22] LABS: Bacteria,Urine Many per hpf (None-Few); Squamous Epithelial Cell,Urine Many per lpf (None-Few)
[2019-09-16 13:36] LABS: Hyaline Casts,Urine Few per lpf (None-Few)
[2019-09-16 14:34] LABS: Alanine Aminotransferase 21 Units/L (7-52); Albumin 4.2 g/dL (3.5-5.7); Albumin/Globulin Ratio 1.1 (1.1-2.2); Alkaline Phosphatase 87 Units/L (34-104); Aspartate Amino Transferase 75 Units/L (13-39); BUN/Creatinine Ratio 22 (6-26); Bilirubin,Total 3.5 mg/dL (0.3-1.0); Blood Urea Nitrogen 16 mg/dL (8-23); Calcium 9.9 mg/dL (8.6-10.3); Carbon Dioxide 25 mEq/L (23-29); Chloride 101 mEq/L (98-107); Creatine Kinase 2572 Units/L (30-223); Globulin 3.9 g/dL (2.4-3.5); Glucose 100 mg/dL (70-105); Magnesium 1.7 mg/dL (1.6-2.6); Osmolality,Calculated 287 (280-300); Potassium 3.8 mEq/L (3.5-5.1); Sodium 138 mEq/L (136-145); Total Protein 8.1 g/dL (6.4-8.9); Troponin I < 0.03 ng/mL (< 0.04); eGFR For African Americans > 60 (> 60); eGFR For Non-African Americans > 60 (> 60)
[2019-09-16] MEDS ORDERED: Naloxone 0.4 MG/ML INJ IVP PRN (18:37)
[2019-09-16] MEDS ORDERED: Albuterol 2.5 MG/3 ML NEBULIZER IH PRN (19:28)
[2019-09-16 19:56] LABS: Albumin 3.3 g/dL (3.5-5.7); Albumin/Globulin Ratio 1.1 (1.1-2.2); Bilirubin,Direct 1.3 mg/dL (0.0-0.2); Bilirubin,Indirect 1.6 mg/dL (0.0-1.0); Bilirubin,Total 2.9 mg/dL (0.3-1.0); Globulin 2.9 g/dL (2.4-3.5); Total Protein 6.2 g/dL (6.4-8.9)
[2019-09-16] MEDS: Piperacillin/Tazobactam 3.375 GM in 0.9 % Sodium Chloride Mini Bag 100 ML IVPB SCH (22:20)
[2019-09-16] MEDS: Nicotine 21 MG PATCH.TD24 TD SCH (22:32)
[2019-09-17 05:55] LABS: Hematocrit 49.8 % (35.3-44.9); Hemoglobin 16.3 g/dL (11.5-15.4); Mean Corpuscular HGB Conc 32.7 g/dL (31.6-35.5); Mean Corpuscular Hemoglobin 34.3 pg (28.0-33.3); Mean Corpuscular Volume 104.8 fL (83.0-100.0); Mean Platelet Volume 11.3 fL (9.4-12.4); Red Blood Count 4.75 M/mcL (3.82-4.97); Red Cell Distribution Width 16.7 % (11.5-14.5); White Blood Count 8.1 K/mcL (4.3-11.1)
[2019-09-17] MEDS: Piperacillin/Tazobactam 3.375 GM in 0.9 % Sodium Chloride Mini Bag 100 ML IVPB SCH ×3 (05:58→22:00)
[2019-09-17 05:59] LABS: INR 1.3; Prothrombin Time 14.3 Seconds (9.4-12.1)
[2019-09-17 06:12] LABS: VBG HCO3 26 mEq/L (21-27); VBG PCO2 46 mmHg (41-51); VBG PH 7.35 pH Units (7.32-7.42); VBG PO2 172 mmHg (25-50)
[2019-09-17 06:13] LABS: Alanine Aminotransferase 14 Units/L (7-52); Albumin 2.9 g/dL (3.5-5.7); Albumin/Globulin Ratio 1.1 (1.1-2.2); Alkaline Phosphatase 60 Units/L (34-104); Aspartate Amino Transferase 36 Units/L (13-39); BUN/Creatinine Ratio 28 (6-26); Bilirubin,Direct 1.1 mg/dL (0.0-0.2); Bilirubin,Indirect 1.3 mg/dL (0.0-1.0); Bilirubin,Total 2.4 mg/dL (0.3-1.0); Blood Urea Nitrogen 17 mg/dL (8-23); Calcium 8.2 mg/dL (8.6-10.3); Carbon Dioxide 22 mEq/L (23-29); Chloride 109 mEq/L (98-107); Creatine Kinase 651 Units/L (30-223); Globulin 2.7 g/dL (2.4-3.5); Glucose 79 mg/dL (70-105); Magnesium 1.6 mg/dL (1.6-2.6); Osmolality,Calculated 288 (280-300); Potassium 3.8 mEq/L (3.5-5.1); Sodium 139 mEq/L (136-145); Total Protein 5.6 g/dL (6.4-8.9); eGFR For African Americans > 60 (> 60); eGFR For Non-African Americans > 60 (> 60)
[2019-09-17] MEDS: Nicotine 21 MG PATCH.TD24 TD SCH (08:01)
[2019-09-17] MEDS: *HR* Rivaroxaban 10 MG TABLET PO SCH (08:02)
[2019-09-17] MEDS ORDERED: Acetaminophen 325 MG TABLET PO PRN (13:36)
[2019-09-17 15:16] LABS: Bilirubin,Urine Moderate (Negative); Blood,Urine Large (Negative); Clarity,Urine Cloudy (Clear); Color,Urine Orange (Yellow); Glucose,Urine (UA) Normal (Normal); Ketones,Urine 15 mg/dL (Negative); Leukocyte Esterase,Urine Moderate (Negative); Nitrite,Urine Positive (Negative); PH,Urine 5.5 pH Units (5.0-8.0); Protein,Urine 30 mg/dL (Neg-Trace); Specific Gravity,Urine > 1.030 (1.010-1.025)
[2019-09-17 15:20] LABS: Bacteria,Urine None Seen per hpf (None-Few); Hyaline Casts,Urine Few per lpf (None-Few); Squamous Epithelial Cell,Urine None Seen per lpf (None-Few); WBC,Urine TNTC per hpf (0-3)
[2019-09-17 15:30] LABS: RBC,Urine 15-30 per hpf (0-3)
[2019-09-17] MEDS: *HR* HYDROcodone/Acet 5/325 mg TABLET PO PRN (20:52)
[2019-09-18 05:51] LABS: Eosinophils % 1.5 %; Immature Granulocytes % 0.3 % (0-4); Red Cell Distribution Width 16.9 % (11.5-14.5)
[2019-09-18 05:53] LABS: Basophils % 0.5 %; Eosinophils # 0.1 K/mcL (0.0-0.6); Hematocrit 51.4 % (35.3-44.9); Hemoglobin 16.2 g/dL (11.5-15.4); Immature Platelets 8.2 % (1.1-6.1); Lymphocytes # 0.9 K/mcL (0.6-4.6); Lymphocytes % 13.9 %; Mean Corpuscular HGB Conc 31.5 g/dL (31.6-35.5); Mean Corpuscular Hemoglobin 33.1 pg (28.0-33.3); Mean Corpuscular Volume 104.9 fL (83.0-100.0); Mean Platelet Volume 11.2 fL (9.4-12.4); Monocytes # 0.8 K/mcL (0.0-1.3); Monocytes % 12.1 %; Platelet Count 136 K/mcL (140-400); Segmented Neutrophils % 71.7 %; White Blood Count 6.6 K/mcL (4.3-11.1)
[2019-09-18 05:54] LABS: Neutrophils # 4.7 K/mcL (1.6-8.9)
[2019-09-18] MEDS: Piperacillin/Tazobactam 3.375 GM in 0.9 % Sodium Chloride Mini Bag 100 ML IVPB SCH ×3 (06:02→22:32)
[2019-09-18 06:14] LABS: Alanine Aminotransferase 14 Units/L (7-52); Alkaline Phosphatase 59 Units/L (34-104); Aspartate Amino Transferase 26 Units/L (13-39); BUN/Creatinine Ratio 28 (6-26); Bilirubin,Total 1.8 mg/dL (0.3-1.0); Blood Urea Nitrogen 20 mg/dL (8-23); Calcium 8.3 mg/dL (8.6-10.3); Carbon Dioxide 24 mEq/L (23-29); Chloride 108 mEq/L (98-107); Globulin 2.9 g/dL (2.4-3.5); Glucose 89 mg/dL (70-105); Magnesium 1.8 mg/dL (1.6-2.6); Osmolality,Calculated 288 (280-300); Phosphorous 2.4 mg/dL (2.7-4.5); Potassium 3.8 mEq/L (3.5-5.1); Sodium 138 mEq/L (136-145); Total Protein 5.9 g/dL (6.4-8.9); eGFR For African Americans > 60 (> 60); eGFR For Non-African Americans > 60 (> 60)
[2019-09-18] MEDS: Nicotine 21 MG PATCH.TD24 TD SCH (07:38)
[2019-09-18] MEDS: *HR* Rivaroxaban 10 MG TABLET PO SCH (07:39)
[2019-09-18] MEDS: *HR* HYDROcodone/Acet 5/325 mg TABLET PO PRN (22:32)
[2019-09-19 04:20] LABS: Basophils % 0.5 %; Eosinophils # 0.1 K/mcL (0.0-0.6); Eosinophils % 2.3 %; Hematocrit 48.5 % (35.3-44.9); Hemoglobin 15.6 g/dL (11.5-15.4); Immature Granulocytes % 0.2 % (0-4); Immature Platelets 6.3 % (1.1-6.1); Lymphocytes # 0.9 K/mcL (0.6-4.6); Lymphocytes % 14.3 %; Mean Corpuscular HGB Conc 32.2 g/dL (31.6-35.5); Mean Corpuscular Hemoglobin 34.1 pg (28.0-33.3); Mean Corpuscular Volume 105.9 fL (83.0-100.0); Mean Platelet Volume 10.5 fL (9.4-12.4); Monocytes # 0.6 K/mcL (0.0-1.3); Monocytes % 9.7 %; Neutrophils # 4.4 K/mcL (1.6-8.9); Platelet Count 136 K/mcL (140-400); Red Blood Count 4.58 M/mcL (3.82-4.97)
[2019-09-19 04:36] LABS: Alanine Aminotransferase 15 Units/L (7-52); Albumin 2.6 g/dL (3.5-5.7); Albumin/Globulin Ratio 0.9 (1.1-2.2); Alkaline Phosphatase 57 Units/L (34-104); Aspartate Amino Transferase 19 Units/L (13-39); BUN/Creatinine Ratio 23 (6-26); Bilirubin,Total 1.4 mg/dL (0.3-1.0); Blood Urea Nitrogen 15 mg/dL (8-23); Carbon Dioxide 30 mEq/L (23-29); Chloride 111 mEq/L (98-107); Globulin 2.9 g/dL (2.4-3.5); Glucose 91 mg/dL (70-105); Osmolality,Calculated 282 (280-300); Potassium 3.7 mEq/L (3.5-5.1); Sodium 136 mEq/L (136-145); Total Protein 5.5 g/dL (6.4-8.9); eGFR For African Americans > 60 (> 60); eGFR For Non-African Americans > 60 (> 60)
[2019-09-19] MEDS: Piperacillin/Tazobactam 3.375 GM in 0.9 % Sodium Chloride Mini Bag 100 ML IVPB SCH ×2 (06:33→13:21)
[2019-09-19] MEDS: Nicotine 21 MG PATCH.TD24 TD SCH (07:45)
[2019-09-19] MEDS: *HR* Rivaroxaban 10 MG TABLET PO SCH (07:46)
[2019-09-19 16:36] VITALS: BP 122/71
[2019-09-19] MEDS ORDERED: Aminoglycoside Consult 1 EACH MC ONE (19:29)
== END 2019-09-19 19:30 | DRG 872 ==
LOC: 3BNU 12:07 → EMEROOARM 12:07 → SUATTDRO 17:42 → 3BNU 18:27 → SUATTDRO 18:51 → 3ANU 20:01
PROVIDERS: ADMIT Internal Medicine; ATTEND Student in an Organized Health Care Education/Training Program

== ENCOUNTER 2020-07-10 11:15 | Inpatient (IN) ==
[2020-07-10] MEDS ORDERED: Piperacillin/Tazobactam 3.375 GM in 0.9 % Sodium Chloride Mini Bag 100 ML IVPB ONE (12:11)
[2020-07-10 12:34] LABS: Bilirubin,Urine Small (Negative); Blood,Urine Negative (Negative); Clarity,Urine Clear (Clear); Color,Urine Orange (Yellow); Glucose,Urine (UA) Normal (Normal); Ketones,Urine Negative (Negative); Leukocyte Esterase,Urine Negative (Negative); Nitrite,Urine Negative (Negative); PH,Urine 5.5 pH Units (5.0-8.0); Protein,Urine Trace mg/dL (Neg-Trace); Specific Gravity,Urine 1.024 (1.010-1.025)
[2020-07-10 13:11] LABS: INR 1.7; Prothrombin Time 18.9 Seconds (9.4-12.1)
[2020-07-10 13:14] LABS: Activated Partial Thrombo Time 46.1 Seconds (26.0-36.0)
[2020-07-10 13:20] LABS: Troponin I 0.22 ng/mL (< 0.04)
[2020-07-10 13:43] LABS: Alanine Aminotransferase 50 Units/L (7-52); Albumin 3.1 g/dL (3.5-5.7); Alkaline Phosphatase 95 Units/L (34-104); Aspartate Amino Transferase 37 Units/L (13-39); BUN/Creatinine Ratio 42 (6-26); Bilirubin,Total 7.5 mg/dL (0.3-1.0); Blood Urea Nitrogen 42 mg/dL (8-23); C-Reactive Protein 253 mg/L (Less than 10); Carbon Dioxide 23 mEq/L (23-29); Chloride 101 mEq/L (98-107); Creatine Kinase 160 Units/L (30-223); Globulin 3.2 g/dL (2.4-3.5); Glucose 80 mg/dL (70-105); Osmolality,Calculated 289 (280-300); Potassium 4.8 mEq/L (3.5-5.1); Sodium 135 mEq/L (136-145); Total Protein 6.3 g/dL (6.4-8.9); eGFR For African Americans > 60 (> 60); eGFR For Non-African Americans 55 (> 60)
[2020-07-10] MEDS ORDERED: 0.9 % Sodium Chloride 1,000 ML IVC ONE (13:45)
[2020-07-10 14:27] LABS: Bilirubin,Direct 3.3 mg/dL (0.0-0.2); Bilirubin,Indirect 4.2 mg/dL (0.0-1.0)
[2020-07-10 14:51] LABS: Basophils # 0.1 K/mcL (0.0-0.2); Basophils % 0.4 %; Hemoglobin 21.4 g/dL (11.5-15.4); Immature Granulocytes % 0.3 % (0-4); Lymphocytes % 2.5 %; Mean Corpuscular HGB Conc 32.2 g/dL (31.6-35.5); Mean Corpuscular Hemoglobin 33.8 pg (28.0-33.3); Mean Corpuscular Volume 105.1 fL (83.0-100.0); Mean Platelet Volume 11.9 fL (9.4-12.4); Monocytes # 0.8 K/mcL (0.0-1.3); Monocytes % 5.7 %; Neutrophils # 12.5 K/mcL (1.6-8.9); Red Blood Count 6.33 M/mcL (3.82-4.97); Red Cell Distribution Width 19.1 % (11.5-14.5); Segmented Neutrophils % 91.1 %; White Blood Count 13.7 K/mcL (4.3-11.1)
[2020-07-10 14:56] LABS: Hematocrit 66.5 % (35.3-44.9); Lymphocytes # 0.3 K/mcL (0.6-4.6)
[2020-07-10 14:57] LABS: Platelet Count 34 K/mcL (140-400)
[2020-07-10 15:11] LABS: Platelet Estimate Marked Decrease (Normal)
[2020-07-10] MEDS ORDERED: Ondansetron ODT 4 MG TAB.RAPDIS SL PRN (15:43)
[2020-07-10] MEDS ORDERED: Acetaminophen 325 MG TABLET PO PRN (15:43)
[2020-07-10] MEDS ORDERED: Isovue-370 500 ML BOTTLE IVP ONE (16:48)
[2020-07-10] MEDS ORDERED: Furosemide 40 MG/4 ML VIAL IVP ONE (18:01)
[2020-07-10] MEDS: Fluconazole 400 MG/200 ML 400 MG/200 ML BAG IVPB SCH ×2 (19:15→21:22)
[2020-07-10 20:53] LABS: White Blood Count 17.1 K/mcL (4.3-11.1)
[2020-07-10 20:54] LABS: Basophils # 0.1 K/mcL (0.0-0.2); Basophils % 0.4 %; Eosinophils % 0.1 %; Hematocrit 61.1 % (35.3-44.9); Hemoglobin 20.4 g/dL (11.5-15.4); Immature Granulocytes % 0.4 % (0-4); Lymphocytes # 0.5 K/mcL (0.6-4.6); Lymphocytes % 3.1 %; Mean Corpuscular HGB Conc 33.4 g/dL (31.6-35.5); Mean Corpuscular Hemoglobin 34.3 pg (28.0-33.3); Mean Corpuscular Volume 102.9 fL (83.0-100.0); Mean Platelet Volume 11.2 fL (9.4-12.4); Monocytes # 0.9 K/mcL (0.0-1.3); Neutrophils # 15.6 K/mcL (1.6-8.9); Nucleated Red Blood Cells 0.1 /100 WBC (0); Platelet Count 34 K/mcL (140-400); Red Blood Count 5.94 M/mcL (3.82-4.97)
[2020-07-10 21:02] LABS: ABG Base Excess 1 mEq/L (-2 to 3); ABG HCO3 29 mEq/L (21-27); ABG Oxygen Saturation 85 % (95-98); ABG PCO2 54 mmHg (35-45); ABG PH 7.33 pH Units (7.32-7.45); ABG PO2 54 mmHg (85-104); ABG TCO2 30 mEq/L (20-26)
[2020-07-10 22:36] LABS: Platelet Estimate Marked Decrease (Normal)
[2020-07-11 03:13] LABS: Red Cell Distribution Width 18.8 % (11.5-14.5)
[2020-07-11 03:14] LABS: Immature Platelets 14.3 % (1.1-6.1); Mean Corpuscular HGB Conc 32.3 g/dL (31.6-35.5); Mean Corpuscular Hemoglobin 34.3 pg (28.0-33.3); Mean Corpuscular Volume 106.3 fL (83.0-100.0); Red Blood Count 5.83 M/mcL (3.82-4.97); White Blood Count 15.4 K/mcL (4.3-11.1)
[2020-07-11 03:39] LABS: Troponin I 0.11 ng/mL (< 0.04)
[2020-07-11 03:49] LABS: Alanine Aminotransferase 34 Units/L (7-52); Albumin 2.7 g/dL (3.5-5.7); Albumin/Globulin Ratio 0.9 (1.1-2.2); Alkaline Phosphatase 87 Units/L (34-104); Aspartate Amino Transferase 24 Units/L (13-39); BUN/Creatinine Ratio 45 (6-26); Bilirubin,Total 6.6 mg/dL (0.3-1.0); Blood Urea Nitrogen 43 mg/dL (8-23); Calcium 8.8 mg/dL (8.6-10.3); Carbon Dioxide 22 mEq/L (23-29); Chloride 102 mEq/L (98-107); Glucose 49 mg/dL (70-105); Magnesium 1.8 mg/dL (1.6-2.6); Osmolality,Calculated 294 (280-300); Potassium 4.4 mEq/L (3.5-5.1); Sodium 138 mEq/L (136-145); Total Protein 5.7 g/dL (6.4-8.9); eGFR For African Americans > 60 (> 60); eGFR For Non-African Americans 57 (> 60)
[2020-07-11 03:54] LABS: % Iron Saturation 12 % (15-50); Ferritin 315 ng/mL (10-120); Iron 33 mcg/dL (50-170); Transferrin 198 mg/dL (203-362)
[2020-07-11 04:00] LABS: Folate 3.8 ng/mL (3.0-16.0)
[2020-07-11] MEDS ORDERED: Ringers Solution, Lactated 1,000 ML IVC ONE (07:22)
[2020-07-11] MEDS ORDERED: Vancomycin 2,000 MG/520 ML IV.SOLN IVPB ONE (07:35)
[2020-07-11] MEDS ORDERED: Cefepime HCl 2,000 MG in Water for inj. (sterile) 20 ML IVP SCH (08:00)
[2020-07-11] MEDS ORDERED: Fluconazole 400 MG/200 ML 400 MG/200 ML BAG IVPB SCH (09:00)
[2020-07-11 13:06] VITALS: BP 108/61
[2020-07-11] MEDS ORDERED: Vancomycin 2,000 MG/520 ML IV.SOLN IVPB SCH (21:00)
[2020-07-16 14:54] LABS: BCR-ABL1 Specimen Source NOT SPECIFIED
== END 2020-07-11 13:34 | disposition short-term general hospital (02) ==
LOC: EMEROOARM 11:15 → 3ANU 11:15
PROVIDERS: ADMIT Internal Medicine; ATTEND Internal Medicine